=== PATIENT | female | born 1960 | race Caucasian/White ===

== ENCOUNTER 2021-05-02 12:31 | Emergency (ER) | payer BC ==
[~2021-05-02] VITALS: Ht 172.7 cm; Wt 90.2 kg
[2021-05-02] MEDS ORDERED: ONDANSETRON PF 4 MG/2 ML VIAL. ONE (12:58)
[2021-05-02] MEDS ORDERED: KETOROLAC 30 MG/ML VIAL. ONE (12:59)
[2021-05-02] MEDS ORDERED: IV NORMAL SALINE 1,000ML 1,000 ML IV ONE (13:00)
[2021-05-02] MEDS ORDERED: ONDANSETRON PF 4 MG/2 ML VIAL. IVP ONE (13:00)
[2021-05-02] MEDS ORDERED: KETOROLAC 30 MG/ML VIAL. IVP ONE (13:00)
[2021-05-02 13:22] LABS: BASO % 0 % (0-3); EOS # 0.1 x10^3/uL (0.0-0.7); EOS % 1 % (0-3); HEMATOCRIT 41.8 % (36.0-47.0); LYMPH # 2.5 x10^3/uL (1.0-4.8); LYMPH % 18 % (24-48); MEAN CORPUSCULAR HEMOGLOBIN 34 pg (25-35); MEAN CORPUSCULAR HGB CONC 34 g/dL (31-37); MEAN CORPUSCULAR VOLUME 100 fL (79-100); MONO # 0.9 x10^3/uL (0.0-1.1); MONO % 6 % (0-9); NEUT % 76 % (31-73); PLATELET COUNT 274 x10^3/uL (140-400); RED BLOOD COUNT 4.19 x10^6/uL (3.50-5.40); RED CELL DISTRIBUTION WIDTH 12.4 % (11.5-14.5); WHITE BLOOD COUNT 14.6 x10^3/uL (4.0-11.0)
[2021-05-02 13:27] LABS: CALCIUM 8.8 mg/dL (8.5-10.1); CREATININE 1.2 mg/dL (0.6-1.0); GFR 45.5; POTASSIUM 4.2 mmol/L (3.5-5.1)
[2021-05-02 13:33] LABS: ALBUMIN/GLOBULIN RATIO 1.3 (1.0-1.7); BILIRUBIN,URINE NEG (NEG); CLARITY,URINE HAZY; COLOR,URINE YELLOW; GLUCOSE,URINE NEG (NEG); NITRITE,URINE NEG (NEG); TOTAL BILIRUBIN 0.6 mg/dL (0.2-1.0); TOTAL PROTEIN 7.2 g/dL (6.4-8.2); UROBILINOGEN,URINE 0.2 mg/dL (0.2 mg/dL)
[2021-05-02 13:34] LABS: AMORPHOUS SEDIMENT,UR PRESENT /HPF; BACTERIA,URINE FEW /HPF (0-FEW); SQUAMOUS EPITHELIAL CELL,UR MOD /LPF
--- NOTE | 2021-05-02 13:49 | RAD ---
EXAMINATION: CT ABDOMEN+PELVIS WO CLINICAL HISTORY: Left cva tenderness/flank pain, stone study TECHNIQUE: Non-IV contrast imaging of the abdomen and pelvis was performed using standard technique, scanning from just above the dome of the diaphragm to the symphysis pubis. Unenhanced imaging is garcia ited for the evaluation of some intra-abdominal and pelvic pathology. CT Dose Reduction Employed: One or more of the following individualized dose reduction techniques wer e utilized for this examination: 1. Automated exposure control 2. Adjustment of the mA and/or kV ac cording to patient size 3. Use of iterative reconstruction technique. COMPARISON: None FINDINGS: Mild curvilinear subsegmental atelectasis and/or scarring in the visualized lungs. Liver, gallbladder, pancreas, spleen, and adrenal glands unremarkable. 5 mm calculus at the left ureterovesical junction with moderate hydroureteronephrosis and perinephric stranding. Nonobstructive small right renal calculi. Decompressed urinary bladder suboptimally evaluated. Retroverted uterus and adnexa unremarkable. No dilated bowel. Normal appendix. Mild arterial atherosclerotic calcification without aneurysm. Multilevel thoracolumbar degenerative changes. IMPRESSION: 5 mm calculus at the left ureterovesical junction with moderate hydroureteronephrosis and surrounding inflammatory changes. Electronically signed by: Steven Kevin DO (05/02/2021 1:46 PM) MASTER
[2021-05-02 14:07] VITALS: BP 157/88
[2021-05-02] MEDS ORDERED: HYDR-2155 PO ×2 (14:18→14:56)
[2021-05-02] MEDS ORDERED: ONDA4TAB12 PO (14:18)
[2021-05-02] MEDS ORDERED: IBUP600T16 PO (14:18)
[2021-05-02] MEDS ORDERED: TAMS0.4C97 PO (14:18)
--- NOTE | 2021-05-02 14:18 | PHYS DOC ---
Adult General Chief Complaint Chief Complaint: FLANK PAIN HPI HPI Patient is a 60-year-old female presents emergency department with chief complaint of left flank pain. Patient states that it woke her up out of bed at 8 AM, states it feels like something is trying to come out of her left side. Patient reports a 10 out of 10 pain. Patient states this is worse than being or having childbirth. Patient denies any history of kidney stones. Patient thinks that this is a kidney stone because her has had them in the past and reported similar type symptoms. Patient denies any abdominal pains, abdominal cramping, denies vaginal discharge or vaginal rashes or STI concerns. Patient denies constipation but states she is nauseated, denies any vomiting. Patient denies any burning with urination, urinary pressure, or seeing blood in her urine. Patient denies any bowel problems, states she had a normal bowel movement yesterday, denies seeing any blood in her bowels. Patient denies any low back pain abdomen pain or spine pain. Patient denies any injury to her back or flanks. Patient denies recent fever or chills. Denies skin rashes. Patient denies chest pains or shortness of breath. Patient reports an allergy to codeine and morphine. Patient states she takes Benicar for blood pressure and Crestor for cholesterol problems, states she takes multivitamins and calcium supplements with vitamin D3. Patient states she also takes magnesium supplements and fish oil. Patient denies any other physical complaints or physical concerns. Patient states that she is visiting from out of town, sees a Dr. Candace Huntley in her hometown of [facility]. 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 Patient states that her plans are to return home this coming Tuesday morning. (GUERA BULLARD APRN) Review of Systems Review of Systems 14 body systems of review of systems have been reviewed. See HPI for pertinent positives and negative responses, otherwise all other systems are negative, nonpertinent or noncontributory. (GUERA BULLARD APRN) Current Medications Current Medications Current Medications Medications (Trade) Dose Ordered Sig/Murray Start Time Stop Time Status Last Admin Dose Admin Ketorolac Tromethamine (Toradol 30mg Vial) 30 mg 1X ONCE 05/02/21 13:00 05/02/21 13:02 DC Ondansetron HCl (Zofran) 4 mg 1X ONCE 05/02/21 13:00 05/02/21 13:02 DC Sodium Chloride 1,000 ml @ 1,000 mls/hr 1X ONCE 05/02/21 13:00 05/02/21 13:59 DC (GUERA BULLARD APRN) Allergies Allergies Allergies Coded Allergies Type Severity Reaction Last Updated Verified codeine Allergy Unknown 05/02/21 Yes morphine Allergy Unknown 05/02/21 Yes (GUERA BULLARD APRN) Physical Exam Physical Exam Constitutional: Well developed, well nourished, appears uncomfortable, restless in bed and able to find a comfortable position but nontoxic in appearance. HENT: Normocephalic, atraumatic, moist membranes. Eyes: Conjunctiva normal, no discharge. Neck: Normal range of motion, trachea midline. Cardiovascular:Heart rate regular rhythm, no edema, no cyanosis, normal peripheral perfusion. Lungs & Thorax: Mildly tachypneic with patient writhing in pain, normal WOB. CTAB. Abdomen: Bowel sounds normal, soft, no tenderness, no masses, no pulsatile masses. No distention, no areas of ecchymosis or skin discoloration appreciated. Skin: Warm, dry, no erythema, no rash. Back: Left sided CVA, no right sided CVA TTP. Normal range of motion. Musculoskeletal: No swelling no deformity. Neurologic: Alert and oriented X 3, normal motor function, normal sensory function, no focal deficits noted. MAEE Psychologic: Affect normal, judgement normal, mood normal. (GUERA BULLARD APRN) Current Patient Data Lab Results Laboratory Tests Test 05/02/21 13:07 White Blood Count 14.6 x10^3/uL (4.0-11.0) H Red Blood Count 4.19 x10^6/uL (3.50-5.40) Hemoglobin 14.0 g/dL (12.0-15.5) Hematocrit 41.8 % (36.0-47.0) Mean Corpuscular Volume 100 fL (79-100) Mean Corpuscular Hemoglobin 34 pg (25-35) Mean Corpuscular Hemoglobin Concent 34 g/dL (31-37) Red Cell Distribution Width 12.4 % (11.5-14.5) Platelet Count 274 x10^3/uL (140-400) Neutrophils (%) (Auto) 76 % (31-73) H Lymphocytes (%) (Auto) 18 % (24-48) L Monocytes (%) (Auto) 6 % (0-9) Eosinophils (%) (Auto) 1 % (0-3) Basophils (%) (Auto) 0 % (0-3) Neutrophils # (Auto) 11.0 x10^3uL (1.8-7.7) H Lymphocytes # (Auto) 2.5 x10^3/uL (1.0-4.8) Monocytes # (Auto) 0.9 x10^3/uL (0.0-1.1) Eosinophils # (Auto) 0.1 x10^3/uL (0.0-0.7) Basophils # (Auto) 0.0 x10^3/uL (0.0-0.2) Urine Collection Type Unknown Urine Color Yellow Urine Clarity Hazy Urine pH 8.5 Urine Specific [place] 1.020 Urine Protein Trace (NEG-TRACE) Urine Glucose (UA) Neg mg/dL (NEG) Urine Ketones (Stick) Neg mg/dL (NEG) Urine Blood Trace (NEG) Urine Nitrite Neg (NEG) Urine Bilirubin Neg (NEG) Urine Urobilinogen Dipstick 0.2 mg/dL (0.2 mg/dL) Urine Leukocyte Esterase Neg (NEG) Urine RBC 6-10 /HPF (0-2) Urine WBC 1-4 /HPF (0-4) Urine Squamous Epithelial Cells Mod /LPF Urine Amorphous Sediment Present /HPF Urine Bacteria Few /HPF (0-FEW) Sodium Level 145 mmol/L (136-145) Potassium Level 4.2 mmol/L (3.5-5.1) Chloride Level 106 mmol/L (98-107) Carbon Dioxide Level 29 mmol/L (21-32) Anion Gap 10 (6-14) Blood Urea Nitrogen 21 mg/dL (7-20) H Creatinine 1.2 mg/dL (0.6-1.0) H Estimated GFR (Cockcroft-Gault) 45.5 BUN/Creatinine Ratio 18 (6-20) Glucose Level 118 mg/dL (70-99) H Calcium Level 8.8 mg/dL (8.5-10.1) Total Bilirubin 0.6 mg/dL (0.2-1.0) Aspartate Amino Transferase (AST) 21 U/L (15-37) Alanine Aminotransferase (ALT) 24 U/L (14-59) Alkaline Phosphatase 50 U/L (46-116) Total Protein 7.2 g/dL (6.4-8.2) Albumin 4.0 g/dL (3.4-5.0) Albumin/Globulin Ratio 1.3 (1.0-1.7) Lipase 153 U/L (73-393) (GUERA BULLARD APRN) EKG EKG [] (GUERA BULLARD APRN) Radiology/Procedures Radiology/Procedures PATIENT: NICCI CAMP ACCOUNT: [id number] : 1960 LOCATION: ER AGE: 60 SEX: F EXAM STATUS: REG ER ORD. PHYSICIAN: GUERA BULLARD APRN REASON: left cva tenderness/flank pain, stone study PROCEDURE: CT ABDOMEN PELVIS WO CONTRAST EXAMINATION: CT ABDOMEN+PELVIS WO CLINICAL HISTORY: Left cva tenderness/flank pain, stone study TECHNIQUE: Non-IV contrast imaging of the abdomen and pelvis was performed using standard technique, scanning from just above the dome of the diaphragm to the symphysis pubis. Unenhanced imaging is limited for the evaluation of some intra-abdominal and pelvic pathology. CT Dose Reduction Employed: One or more of the following individualized dose reduction techniques were utilized for this examination: 1. Automated exposure control 2. Adjustment of the mA and/or kV according to patient size 3. Use of iterative reconstruction technique. COMPARISON: None FINDINGS: Mild curvilinear subsegmental atelectasis and/or scarring in the visualized l ungs. Liver, gallbladder, pancreas, spleen, and adrenal glands unremarkable. 5 mm calculus at the left ureterovesical junction with moderate hydroureteronephrosis and perinephric stranding. Nonobstructive small right renal calculi. Decompressed urinary bladder suboptimally evaluated. Retroverted uterus and adnexa unremarkable. No dilated bowel. Normal appendix. Mild arterial atherosclerotic calcification without aneurysm. Multilevel thoracolumbar degenerative changes. IMPRESSION: 5 mm calculus at the left ureterovesical junction with moderate hydroureteronephrosis and surrounding inflammatory changes. Electronically signed by: Steven Haque DO (05/02/2021 1:46 PM) [facility] DICTATED AND SIGNED BY: STEVEN HAQUE DO DATE: 05/02/21 1340 CC: GUERA BULLARD APRN; JUANJOSE BERGMAN DO; NON,STAFF ~MTH0 0 (GUERA BULLARD APRN) Heart Score C/O Chest Pain: No Risk Factors: Risk Factors: DM, Current or recent (<one month) smoker, HTN, HLP, family history of CAD, obesity. Risk Scores: Risk Factors: DM, Current or recent (<one month) smoker, HTN, HLP, family history of CAD, obesity. (GUERA BULLARD APRN) Course & Med Decision Making Course & Med Decision Making Pertinent Labs and Imaging studies reviewed. (See chart for details) 60-year-old female, vital signs reviewed, presents emergency department complaining of left flank pain that started suddenly at 8 AM this morning. Physical presentation and examination consistent with acute kidney stone. Will order stone study work-up. Will give IV Zofran for nausea, 30 mg IV Toradol for pain, 1 L normal saline. After period of time, reexamination of the patient and no apparent distress. Patient reports her pain is now a 1 out of 10. Patient reports she feels much better. CT abdomen pelvis without contrast showed 5 mm stone in the UV junction, labs unremarkable, however patient's serum creatinine 1.2 with BUN of 21, the GFR is greater than 45. This is most likely related to acute kidney stone diagnosis. Patient was given 1 L of normal saline. Discussed this finding with patient, patient states she will follow-up with her primary care physician when she returns home on Tuesday to [facility]. Patient tolerated p.o. fluids in the emergency department and was able to ambulate without assistance. No evidence suggesting pyelonephritis or urinary tract infection, no acute kidney injury present or significant hydronephrosis. Pain is controlled at this time. Kidney stone was less than 6 mm and could pass spontaneously, this was discussed with the patient and they were amenable to trial of stone passage at home. Will give antinausea, pain control, and tamsulosin prescriptions. The patient is currently afebrile and hemodynamically stable, in no apparent distress and remains nontoxic in appearance. Plan to discharge from the emergency department. Advised to take medications as instructed and drink plenty of fluids. Return precautions discussed with patient, who understands all instructions and is comfortable with the plan of care. Patient was discharged to home without incident. Related to patient visiting from out of town, computer printed prescriptions were provided for this reason. A local pharmacy in [facility], called stating they were unable to accept written prescriptions for [place]. Requested a E prescription be sent. The written prescription was canceled, a prescription was sent to the [facility] pharmacy. (GUERA BULLARD APRN) Course & Med Decision Making I oversaw on the above date of service of this patient. This patient was evaluated, examined, treated, and dispositioned from the emergency department by the mid-level practitioner. Although I was working at the time and available for consultation, no assistance was requested and I did not see or immediately direct the care of this patient. I reviewed note and agree to findings, plan of care, and disposition as stated. Electronically signed, Juanjose Bergman DO (JUANJOSE BERGMAN DO) Cameron Disclaimer Cameron Disclaimer This electronic medical record was generated, in whole or in part, using a voice recognition dictation system. (GUERA BULLARD APRN) Departure Departure: Impression: Primary Impression: Kidney stone on left side Disposition: HOME / SELF CARE / HOMELESS Condition: GOOD Referrals: NON,STAFF (PCP) Patient Instructions: Kidney Stones Additional Instructions: You were seen today in the emergency department for sudden pain on your left flank area. As we discussed, you have a kidney stone on the left side. It is 5 mm in diameter, this has a high probability of passing on its own. As we discussed I am writing you a prescription for Zofran ODT tablets for nausea, ibuprofen, [place], and Flomax. Please drink plenty of water. You had indicated you were from [place] and are heading back home this coming Tuesday. Please follow- up with your primary care physician Dr. Candace Huntley or a urologist of your choice. We have discussed signs and symptoms of reasons to return back to the emergency department for reevaluation. Please take medications as prescribed. Please return to the emergency department for worsening symptoms or other peyman rns. It was a pleasure taking care of you today and I think you have allowing me to participate in your health care today. EMERGENCY DEPARTMENT GENERAL DISCHARGE INSTRUCTIONS Thank you for coming to [facility] (ED) today and trusting us with you care. We trust that you had a positivie experience in our Emergency Department. If you wish to speak to the department management, you may call the director at [phone]. YOUR FOLLOW UP INSTRUCTIONS ARE FOLLOWS: 1. Do you have a private Doctor? If you do not have a private doctor, please ask for a resource list of physicians or clinics that may be able to assist you with follow up care. 2. The Emergency Physician has interpreted your x-rays. The X-Ray specialist will also review them. If there is a change in the findings, you will be notified in 48 hours when at all possible. 3. A lab test or culture has been done, your results will be reviewed and you will be notified if you need a change in treatment. ADDITIONAL INSTRUCTIONS AND INFORMATION: 1. Your care today has been supervised by a physician who is specially trained in emergency care. Many problems require more than one evaluation for a complete diagnosis and treatment. We recommend that you schedule your follow up appointment as recommended to ensure complete treatment of you illness or injury. If you are unable to obtain follow up care and continue to have a problem, or if your condition worsens, we recommend that you return to the ED. 2. We are not able to safely determine your condition over the phone nor are we able to give sound medical advice over the phone. For these safety reasons, if you call for medical advice we will ask you to come to the ED for further evaluation. 3. If you have any questions regarding these discharge instructions please call the ED at [phone]. SAFETY INFORMATION: In the interest of safety, wellness, and injury prevention; we encourage you to wear your sealbelt, if you smoke; quite smoking, and we encourage family to use a protective helmet for bicycling and other sporting events that present an increased risk for head injury. IF YOUR SYMPTOMS WORSEN OR NEW SYMPTOMS DEVELOP, OR YOU HAVE CONCERNS ABOUT YOUR CONDITION; OR IF YOUR CONDITION WORSENS WHILE YOU ARE WAITING FOR YOUR FOLLOW UP APPOINTMENT; EITHER CONTACT YOUR PRIMARY CARE DOCTOR, THE PHYSICIAN WHOSE NAME AND NUMBER YOU WERE GIVEN, OR RETURN TO THE ED IMMEDIATELY. Scripts Hydrocodone Bit/Acetaminophen (HYDROCODONE-APAP 5-325 ) 1 Each Tablet 1 TAB PO PRN Q6HRS PRN for SEVERE PAIN 7-10, #10 TAB 0 Refills Prov: GUERA BULLARD APRN 05/02/21 Ondansetron (ONDANSETRON ODT) 4 Mg Tab.rapdis 1 TAB PO PRN Q6-8HRS for nausea, #16 TAB 0 Refills Prov: GUERA BULLARD APRN 05/02/21 Ibuprofen (IBUPROFEN) 600 Mg Tablet 600 MG PO Q6-8HRS PRN for PAIN, #20 TAB 0 Refills Prov: GUERA BULLARD APRN 05/02/21 Tamsulosin Hcl (FLOMAX) 0.4 Mg Cap.er.24h 0.4 MG PO DAILY for kidney stone, #4 CAP.SR 0 Refills Prov: GUERA BULLARD APRN 05/02/21 GUERA BULLARD APRN May 02, 2021 14:18 JUANJOSE BERGMAN DO May 05, 2021 07:55
== END 2021-05-02 14:40 | disposition home or self-care (01) ==
LOC: ER 12:31
DX: N20.0 Calculus of kidney (principal); Z88.5 Allergy status to narcotic agent
CPT/HCPCS: 36415; 74176; 80053; 81001; 83690; 85025; 99284-25